=== PATIENT | female | born 1935 | race African-American/Black ===

== ENCOUNTER → 2017-08-29 | Outpatient (CLI) | payer MEDICARE, MEDICAID ==
[~2017-08-29] MED LIST: AMLO10TA80 PO; ATOR10TA69 PO; BARIUM SULFATE 450ML ORAL SUSP ONE; CARI350T27 PO; CLON1TAB PO; FURO-152 PO; PANT40TA4 PO; SIMV20TA2 PO; SOMA; TLXL5
== END | disposition home or self-care (01) ==
LOC: CT 10:41
PROVIDERS: ATTEND Internal Medicine Gastroenterology
DX: N28.1 Cyst of kidney, acquired (principal); N18.9 Chronic kidney disease, unspecified; K80.20 Calculus of gallbladder without cholecystitis without obstruction; K57.30 Diverticulosis of large intestine without perforation or abscess without bleeding; D35.02 Benign neoplasm of left adrenal gland; N26.1 Atrophy of kidney (terminal)
CPT/HCPCS: 74176